=== PATIENT | female | born 1995 | race Caucasian/White ===

== ENCOUNTER 2021-11-20 08:55 | Outpatient (CLI) | payer BC, SELFPAY ==
[2021-11-20 08:55] VITALS: BMI 30.4
[2021-11-20 09:05] VITALS: BP 137/85; PULSE 69
[2021-11-20 09:25] VITALS: BP 113/84; PULSE 77
[2021-11-20 09:45] VITALS: BP 109/72; PULSE 70
[2021-11-20 10:08] VITALS: BP 109/72; PULSE 70; RESP 18
[2021-11-20 18:02] LABS: Nitrazine Paper, PH Negative
== END 2021-11-20 10:00 | disposition home or self-care (01) ==
LOC: OPOB 08:58 → OBGYN 08:59
PROVIDERS: PCP Nurse Practitioner Family; Visit Provider Family Medicine
DX: O26.899 Other specified pregnancy related conditions, unspecified trimester (principal); Z3A.00 Weeks of gestation of pregnancy not specified; N89.8 Other specified noninflammatory disorders of vagina
CPT/HCPCS: 59025; 83986; 99211

== ENCOUNTER 2021-12-06 23:34 | Inpatient (IN) | payer BC, SELFPAY ==
[2021-12-06] VITALS (8 sets, daily range): BP systolic 118–129; BP diastolic 77–86; PULSE 65–82; RESP 17; BMI 32.9
[2021-12-06] MEDS: miSOPROStol 100 mcg tablet 25 MCG VAGINAL (20:28)
[2021-12-06] MEDS: dextrose 5%-lactated ringers 1,000 ML 125 ML IV (20:42)
[2021-12-06] MEDS: ampicillin 2,000 MG in sodium chloride 0.9% (plus) 50 ML 100 MG IV (20:42)
[2021-12-06 20:51] LABS: Basophils % 0.2 %; Eosinophils # 0.1 10^3/uL (0.0-0.8); Eosinophils % 1.1 %; Hematocrit 33.1 % (37.0-47.0); Hemoglobin 11.4 g/dL (11.5-15.3); Lymphocytes # 2.3 10^3/uL (0.8-4.8); Lymphocytes % 23.5 %; Mean Corpuscular HGB Conc 34.4 g/dL (30.0-36.0); Mean Platelet Volume 10.9 fL (7.4-10.4); Monocytes # 0.6 10^3/uL (0.2-0.9); Monocytes % 6.3 %; Neutrophils # 6.75 10^3/uL (1.8-7.7); Neutrophils % 68.1 %; Nucleated Red Blood Cells % 0 %; Platelet Count 248 10^3/cmm (130-400); Red Blood Count 3.56 10^6/uL (4.1-5.3); Red Cell Distribution Width 12.2 % (12.1-15.1); White Blood Count 9.9 10^3/uL (4.0-10.0)
[2021-12-07] VITALS (31 sets, daily range): BP systolic 102–141; BP diastolic 60–97; PULSE 59–100; RESP 16; TEMP 36.6–36.7
[2021-12-07] MEDS: miSOPROStol 100 mcg tablet 25 MCG VAGINAL (00:33)
[2021-12-07] MEDS: ampicillin 1,000 MG in sodium chloride 0.9% (plus) 50 ML 100 MG IV ×2 (00:40→04:30)
[2021-12-07] MEDS: oxytocin 30 UNIT/500 ML BAG IV (04:52)
[2021-12-07] MEDS: ondansetron 2 mg/ML SDV 2 mL 4 MG IVP (05:20)
--- NOTE | 2021-12-07 06:49 | P.HPUD_ITS ---
Labor & Delivery H&P Update Date of Procedure: December 07, 2021 Date H&P Performed: 12/01/21 Changes to previous documentation: None. Patient presenting for induction Admission Diagnosis: 40-week and 6-day Primary indication for procedure: Postdates Other information: The patient is a 26-year-old 2 para 0 at 40 weeks and 6 days presenting to the hospital for postdate induction. She has had an unremarkable . Her labs were remarkable for having blood type is O+. She is rubella i mmune. Her glucose screen was negative. She is GBS positive. Otherwise the remainder of her labs are within normal limits. Related Problem List Diagnoses (1) 40 weeks gestation of : I anticipate a routine induction. She will be placed on Cytotec 25 mcg x 2 and consider Pitocin depending on her response. She will be placed on ampicillin per GBS protocol
--- NOTE | 2021-12-07 06:52 | P.PCNOB_ITS ---
Delivery Note: Date of delivery: December 07, 2021 Pre-delivery diagnoses: 26-year-old 2 para 0 at 40 weeks and 6 days estimated gestational age presenting for induction Post-delivery diagnoses: Status post spontaneous vaginal delivery Procedure: Spontaneous vaginal delivery Delivering Physician: Peter Resendiz Findings: 100 Pre-Delivery Course: The patient presented to the hospital for induction. Cytotec 25 mcg per vagina was placed x2. GBS protocol was initiated upon admission to the hospital. Pitocin was also initiated. Spontaneous rupture of membranes occurred. She progressed to complete without difficulty. Delivery: DELIVERY: The patient progressed to complete without difficulty. She delivered a female with a weight of 7 pounds 4 ounces with Apgars of 8, 10. The baby was delivered from the BROWN position and placed on the mother's abdomen. The cord was then clamped and cut 1 minute after delivery There was a nuchal cord x1 which was easily reduced prior to delivery. Meconium was noted at the time of delivery. The placenta and 3 vessel cord were delivered intact shortly thereafter. The perineum and vaginal vault were carefully examined. Bilateral vaginal wall lacerations were noted. No bleeding was noted. Both the mother and the baby were in stable condition. Post-Delivery Status: Good A&P Assessment and plan (1) 40 weeks gestation of : I anticipate routine care. 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
--- NOTE | 2021-12-07 07:56 | PC.NURSE ---
Patient up to bathroom at this time. Patient missed hat when voiding. Patient had heavy bleeding in toilet and when assisted back to bed patient reports chest pain/pressure. Vitals obtained, see vitals. Dr. Resendiz notified.
[2021-12-07] MEDS: prenatal vitamin Capsule 1 CAP PO (09:03)
[2021-12-07] MEDS: docusate sodium 100 mg Capsule PO ×2 (09:04→18:10)
[2021-12-07] MEDS: ibuprofen 800 mg tablet PO ×3 (09:04→20:45)
[2021-12-07 18:41] LABS: Hematocrit 32.4 % (37.0-47.0); Hemoglobin 11.1 g/dL (11.5-15.3); Mean Corpuscular HGB Conc 34.3 g/dL (30.0-36.0); Mean Corpuscular Hemoglobin 32.2 pg (28.0-34.0); Mean Corpuscular Volume 93.9 fl (81-99); Mean Platelet Volume 10.3 fL (7.4-10.4); Platelet Count 207 10^3/cmm (130-400); Red Blood Count 3.45 10^6/uL (4.1-5.3); Red Cell Distribution Width 12.3 % (12.1-15.1); White Blood Count 14.5 10^3/uL (4.0-10.0)
[2021-12-08 00:31] VITALS: BP 118/67; PULSE 61
[2021-12-08 05:27] VITALS: BP 110/58; PULSE 77
--- NOTE | 2021-12-08 07:30 | PM.OBGYDC ---
Discharge Providers [employer] Date of Admission: 12/06/21 23:34 Date of Discharge: 12/08/21 Attending Provider at Admission: Peter Resendiz MD Attending Provider at Discharge: Peter Resendiz MD Primary Care Provider: Marcus Rey Diagnoses at Discharge Discharge Diagnosis (1) 40 weeks gestation of : Status: Acute (2) Spontaneous vaginal delivery: Status: Acute Reason for Visit Reason for Visit: INDUCTION Hospital Course Hospital Course The patient presented to the hospital for induction due to being postdates. She was placed on Cytotec x2. She was placed on Pitocin. She had spontaneous rupture of membranes. She progressed to complete and had an unremarkable delivery of a healthy-appearing female infant. Her course was unremarkable. Her bleeding was minimal. She breast-fed well. Her pain was well controlled. Information Peripartum Data: Delivery Method: Vaginal Physical Exam Narrative: The patient is alert. She appears comfortable. Her heart has a regular rate and rhythm with no murmurs appreciated. Lungs are clear to auscultation bilaterally. Her fundus is firm and below the umbilicus. Discharge Data Studies Completed and Pending Laboratory Results WBC 14.5 10^3/uL (4.0-10.0) H 12/07/21 18: RBC 3.45 10^6/uL (4.1-5.3) L 12/07/21 18:22 Hgb 11.1 g/dL (11.5-15.3) L 12/07/21 18:22 Hct 32.4 % (37.0-47.0) L 12/07/21 18: MCV 93.9 fl (81-99) 12/07/21 18: MCH 32.2 pg (28.0-34.0) 12/07/21 18: MCHC 34.3 g/dL (30.0-36.0) 12/07/21 18: RDW 12.3 % (12.1-15.1) 12/07/21 18: Plt Count 207 10^3/cmm (130-400) 12/07/21 18: MPV 10.3 fL (7.4-10.4) 12/07/21 18:22 Neut % (Auto) 68.1 % 12/06/21 19:54 Lymph % (Auto) 23.5 % 12/06/21 19:54 [place] % (Auto) 6.3 % 12/06/21 19:54 Eos % (Auto) 1.1 % 12/06/21 19:54 Baso % (Auto) 0.2 % 12/06/21 19:54 Neut # (Auto) 6.75 10^3/uL (1.8-7.7) 12/06/21 19:54 Lymph # (Auto) 2.3 10^3/uL (0.8-4.8) 12/06/21 19:54 [place] # (Auto) 0.6 10^3/uL (0.2-0.9) 12/06/21 19:54 Eos # (Auto) 0.1 10^3/uL (0.0-0.8) 12/06/21 19:54 Baso # (Auto) 0.0 10^3/uL (0.0-0.1) 12/06/21 19:54 Nucleated RBC % (auto) 0 % 12/06/21 19:54 Nucleated RBCs # 0.0 /100WBC 12/06/21 19:54 Vitals Last Vital Signs Temp 98.1 F 12/07/21 20:45 Pulse 77 12/08/21 05:27 Resp 16 12/07/21 07:55 BP 110/58 12/08/21 05:27 Discharge Plan Discharge Patient Disposition: Home Condition: Stable Prescriptions: New ibuprofen 800 mg Tablet 800 mg PO TID Qty: 45 0RF Continued PNV cmb#[id number]-ferrous fumarate-FA [] 28 mg iron- 800 mcg Tablet 1 tab PO DAILY 0RF Discontinued famotidine [Pepcid] 20 mg Tablet 20 mg PO BID 0RF Discharge Orders: Discharge Order (Routine); Ordered 12/08/21 Ordered By: Peter Resendiz Referrals: Peter Resendiz MD [Physician] - 6 Weeks Discharge Diet: Usual diet Discharge Activity: Limit activity as instructed Patient Instructions: Opioid Safety Discharge Attestations [employer] Time Spent in Discharge Care*: less than 30 min Coding Level of Care Code Acute 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
[2021-12-08 08:59] VITALS: BP 134/82; PULSE 65; TEMP 36.6
[2021-12-08 09:00] VITALS: BP 134/82; PULSE 65; RESP 16; TEMP 36.6
== END 2021-12-08 09:20 | disposition home or self-care (01) | DRG 807 ==
LOC: OPOB 23:34 → OBGYN 23:34
PROVIDERS: Admitting Provider Family Medicine; PCP Nurse Practitioner Family; Visit Provider Family Medicine
DX: O48.0 Post-term pregnancy (principal); Z37.0 Single live birth; Z3A.40 40 weeks gestation of pregnancy; O99.824 Streptococcus B carrier state complicating childbirth; O69.9XX0 Labor and delivery complicated by cord complication, unspecified, not applicable or unspecified
CPT/HCPCS: 12345; 36415; 59025; 59409; 85025; 85027; J0290; J2405